=== PATIENT | male | born 1985 | race African-American/Black ===

== ENCOUNTER 2017-08-17 10:22 | Inpatient (IN) | payer OTHER ==
[2017-08-17 12:48] VITALS: BMI 25.8
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
[2017-08-17] MEDS ORDERED: ACETAMINOPHEN 325 MG TABLET (FP) PO PRN (15:23)
[2017-08-17] MEDS ORDERED: METHADONE HCL 10 MG TABLET (FOR DETOX USE ONLY) PO ONE ×2 (15:23→23:00)
[2017-08-17] MEDS ORDERED: hydrOXYzine PAMOATE 50 MG CAPSULE (FP) PO PRN (15:23)
[2017-08-17] MEDS ORDERED: MENTHOL/PHENOL 1 EACH UD MM PRN (15:23)
[2017-08-17] MEDS ORDERED: IBUPROFEN 400 MG TABLET (FP) PO PRN (15:23)
[2017-08-17] MEDS ORDERED: LOPERAMIDE HCL 2 MG CAPSULE PO PRN (15:23)
[2017-08-17] MEDS ORDERED: diphenhydrAMINE HCL 50 MG CAPSULE PO PRN (15:23)
[2017-08-17] MEDS ORDERED: MAGNESIUM CITRATE 300 ML BOTTLE PO PRN (15:23)
[2017-08-17] MEDS ORDERED: diazePAM 5 MG TABLET PO ONE (15:23)
[2017-08-17] MEDS ORDERED: guaiFENesin/D-METHORPHAN HB 10 ML UNIT-DOSE CUPS PO PRN (15:23)
[2017-08-17] MEDS ORDERED: MAG HYDROX/AL HYDROX/SIMETH 30 ML UNIT-DOSE CUP PO PRN (15:23)
[2017-08-17] MEDS ORDERED: MAGNESIUM HYDROX 2400MG/30ML ORAL SUSPENSION 30 ML CUP PO PRN (15:23)
[2017-08-17] MEDS ORDERED: P-EPHED 60MG/TRIPROLIDI 2.5MG TABLET PO PRN (15:23)
[2017-08-17] MEDS ORDERED: METHADONE HCL 10 MG TABLET (FOR DETOX USE ONLY) ONE (17:46)
[2017-08-17] MEDS: NICOTINE 21 MG/24 HOURS TOPICAL PATCH TD SCH (17:58)
[2017-08-17] MEDS: NICOTINE POLACRILEX 2 MG GUM BC PRN (19:20)
[2017-08-17] MEDS: THIAMINE HCL 100 MG TABLET (FP) PO SCH (22:42)
[2017-08-17] MEDS: diazePAM 5 MG TABLET PO SCH (22:42)
[2017-08-17 23:34] LABS: URINE APPEARANCE SLCLOUDY; URINE BILIRUBIN NEGATIVE (NEGATIVE); URINE BLOOD NEGATIVE (NEGATIVE); URINE COLOR AMBER; URINE GLUCOSE (UA) NEGATIVE (NEGATIVE); URINE KETONE NEGATIVE (NEGATIVE); URINE LEUK ESTERASE NEGATIVE (NEGATIVE); URINE NITRITE NEGATIVE (NEGATIVE)
[2017-08-17 23:35] LABS: URINE PROTEIN 1+ (NEGATIVE)
[2017-08-17 23:59] LABS: URINE BACTERIA RARE /hpf (NONE SEEN); URINE MUCUS MANY; URINE RBC 1 /hpf (0-3); URINE WBC 4 /hpf (3-5)
[2017-08-18] MEDS: diazePAM 5 MG TABLET PO SCH ×3 (05:39→22:50)
[2017-08-18] MEDS ORDERED: METHADONE HCL 10 MG TABLET (FOR DETOX USE ONLY) PO SCH (10:00)
[2017-08-18 10:22] LABS: SICKLE CELL SCREEN NEGATIVE (NEGATIVE)
[2017-08-18 10:25] LABS: ALBUMIN 3.3 g/dl (3.4-5.0); ANION GAP 8 (8-16); BILIRUBIN,TOTAL 0.3 mg/dL (0.2-1.0); CALCIUM 8.7 mg/dL (8.5-10.1); CO2 28 mmol/L (21-32); CREATININE 1.1 mg/dL (0.7-1.3); GLUCOSE,RANDOM 101 mg/dL (74-106); SGOT/AST 13 U/L (15-37); SGPT/ALT 16 U/L (12-78); TOT PROT 6.4 g/dl (6.4-8.2)
[2017-08-18 10:26] LABS: ALK PHOS 66 U/L (45-117); MCH 30.2 pg (25.7-33.7); MCHC 33.3 g/dl (32.0-35.9); MEAN CELL VOLUME 90.8 fl (80-96); MEAN PLT VOLUME 7.7 fl (7.5-11.1); PLATELET COUNT 323 K/MM3 (134-434); RDW 13.8 % (11.9-15.9); WHITE BLOOD COUNT 7.7 K/mm3 (4.0-10.0)
[2017-08-18] MEDS: PRENATAL VITAMINS W/ FOLIC ACID TABLET (FP) PO SCH (10:51)
[2017-08-18] MEDS: NICOTINE 21 MG/24 HOURS TOPICAL PATCH TD SCH (10:51)
[2017-08-18] MEDS: diazePAM 5 MG TABLET PO PRN (10:53)
--- NOTE | 2017-08-18 13:07 | EKG ---
Test Reason : Blood Pressure : / mmHG Vent. Rate : 062 BPM Atrial Rate : 062 BPM P-R Int : 176 ms QRS Dur : 098 ms QT Int : 422 ms P-R-T Axes : 042 125 044 degrees QTc Int : 428 ms NORMAL SINUS RHYTHM RIGHT AXIS DEVIATION ABNORMAL ECG NO PREVIOUS ECGS AVAILABLE Confirmed by KRISTIE WYATT MD ([id number]) on 08/18/2017 1:07:09 PM Referred By: Confirmed By:KRISTIE WYATT MD
[2017-08-18] MEDS: NICOTINE POLACRILEX 2 MG GUM BC PRN ×2 (13:28→23:00)
--- NOTE | 2017-08-18 13:39 | PN ---
S CIWA - CIWA Score Nausea/Vomitin Muscle Tremors: 4-Moderate,w/Arms Extend Anxiety: 2 Agitation: 0-Normal Activity Paroxysmal Sweats: No Perspiration Orientation: 0-Oriented Tacttile Disturbances: 2-Mild Itch/Numbness/Burn Auditory Disturbances: 2-Mild Harshness/Frighten Visual Disturbances: 2-Mild Sensitivity Headache: 3-Moderate CIWA-Ar Total Score: 18 BHS COWS - Scale Resting Pulse: 0= [place] 80 or Below Sweatin= Chills/Flushing Restless Observation: 1= Difficult to Sit Still Pupil Size: 0= Normal to Room Light Bone or Joint Aches: 2= Severe Diffuse Aches Runny Nose/ Eye Tearin= None GI Upset > 30mins: 2= Nausea/Diarrhea Tremor Observation of Outstretched Hands: 2= Slight Tremor Visible Yawning Observation: 1= 1-2x During Session Anxiety or Irritability: 2=Irritable/Anxious Goose Flesh Skin: 3=Piloerection COWS Score: 14 BHS Progress Note (SOAP) Subjective: Interrupted Sleep, Nausea, Stomach Cramping, Tremors, H/A, Body Aches. Objective: PT. A & O X 3, OBSERVED AMBULATING ON UNIT. NO ACUTE DISTRESS. 08/18/17 13:41 Vital Signs Temperature 98.2 F 08/18/17 11:18 Pulse Rate 76 08/18/17 11:18 Respiratory Rate 16 08/18/17 11:18 Blood Pressure 118/59 08/18/17 11:18 O2 Sat by Pulse Oximetry (%) Laboratory Tests 08/17/17 08/18/17 08/18/17 23:00 08:00 08:00 WBC 7.7 RBC 4.71 Hgb 14.2 Hct 42.8 MCV 90.8 MCH 30.2 MCHC 33.3 RDW 13.8 Plt Count 323 MPV 7.7 Sickle Cell Screen Negative Sodium 143 Potassium 4.2 Chloride 107 Carbon Dioxide 28 Anion Gap 8 BUN 13 Creatinine 1.1 Creat Clearance w eGFR > 60 Random Glucose 101 Calcium 8.7 Total Bilirubin 0.3 AST 13 L ALT 16 Alkaline Phosphatase 66 Total Protein 6.4 Albumin 3.3 L Urine Color Shantel Urine Appearance Slcloudy Urine pH 5.0 Ur Specific [place] >= 1.030 H Urine Protein 1+ H Urine Glucose (UA) Negative Urine Ketones Negative Urine Blood Negative Urine Nitrite Negative Urine Bilirubin Negative Urine Urobilinogen 2.0 Urine RBC 1 Urine WBC 4 Urine Bacteria Rare Urine Mucus Many RPR Titer 08/18/17 08:00 WBC RBC Hgb Hct MCV MCH MCHC RDW Plt Count MPV Sickle Cell Screen Sodium Potassium Chloride Carbon Dioxide Anion Gap BUN Creatinine Creat Clearance w eGFR Random Glucose Calcium Total Bilirubin AST ALT Alkaline Phosphatase Total Protein Albumin Urine Color Urine Appearance Urine pH Ur Specific [place] Urine Protein Urine Glucose (UA) Urine Ketones Urine Blood Urine Nitrite Urine Bilirubin Urine Urobilinogen Urine RBC Urine WBC Urine Bacteria Urine Mucus RPR Titer Nonreactive LABS NOTED. Assessment: 08/18/17 13:41 WITHDRAWAL SYMPTOMS. Plan: CONTINUE DETOX. INCREASE DAILY PO FLUID INTAKE.
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
[2017-08-18] MEDS: BACITRACIN 0.9 GM PACKET TP SCH ×2 (14:44→21:14)
[2017-08-18] MEDS: ZOLPIDEM TARTRATE 10 MG TABLET (PARK CARE ONLY) PO SCH (22:50)
[2017-08-18] MEDS: THIAMINE HCL 100 MG TABLET (FP) PO SCH (22:50)
[2017-08-19] MEDS: diazePAM 5 MG TABLET PO PRN ×2 (05:45→19:37)
[2017-08-19] MEDS: METHADONE HCL 5 MG TABLET (FOR DETOX USE ONLY) PO SCH (10:41)
[2017-08-19] MEDS: BACITRACIN 0.9 GM PACKET TP SCH ×2 (10:41→22:25)
[2017-08-19] MEDS: NICOTINE 21 MG/24 HOURS TOPICAL PATCH TD SCH (10:41)
[2017-08-19] MEDS: PRENATAL VITAMINS W/ FOLIC ACID TABLET (FP) PO SCH (10:41)
[2017-08-19] MEDS: diazePAM 5 MG TABLET PO SCH ×2 (10:41→22:25)
[2017-08-19] MEDS: NICOTINE POLACRILEX 2 MG GUM BC PRN (10:42)
[2017-08-19] MEDS ORDERED: IBUPROFEN 400 MG TABLET (FP) PO ONE (12:30)
--- NOTE | 2017-08-19 16:50 | PN ---
S CIWA - CIWA Score Nausea/Vomitin Muscle Tremors: 4-Moderate,w/Arms Extend Anxiety: 4-Mod. Anxious/Guarded Agitation: 4-Moderately Restless Paroxysmal Sweats: 3 Orientation: 0-Oriented Tacttile Disturbances: 1-Very Mild Itch/Numbness Auditory Disturbances: 0-None Visual Disturbances: 0-None Headache: 4-Moderately Severe CIWA-Ar Total Score: 23 BHS COWS - Scale Resting Pulse: 0= [place] 80 or Below Sweatin=Flushed/Facial Moisture Restless Observation: 3= Extraneous Movement Pupil Size: 0= Normal to Room Light Bone or Joint Aches: 2= Severe Diffuse Aches Runny Nose/ Eye Tearin= Runny Nose/Eyes GI Upset > 30mins: 2= Nausea/Diarrhea Tremor Observation of Outstretched Hands: 2= Slight Tremor Visible Yawning Observation: 0= None Anxiety or Irritability: 2=Irritable/Anxious Goose Flesh Skin: 0=Smooth Skin COWS Score: 15 [facility] Progress Note (SOAP) Subjective: Sweating, chills, tremor, headache (pain scale 8/10), nausea, anxious Objective: 08/19/17 16:49 Last Vital Signs Temp Pulse Resp BP Pulse Ox 97.7 F 70 20 112/70 08/19/17 15:00 08/19/17 15:00 08/19/17 15:00 08/19/17 15:00 Laboratory Tests 08/17/17 08/18/17 08/18/17 23:00 08:00 08:00 WBC 7.7 RBC 4.71 Hgb 14.2 Hct 42.8 MCV 90.8 MCH 30.2 MCHC 33.3 RDW 13.8 Plt Count 323 MPV 7.7 Sickle Cell Screen Negative Sodium 143 Potassium 4.2 Chloride 107 Carbon Dioxide 28 Anion Gap 8 BUN 13 Creatinine 1.1 Creat Clearance w eGFR > 60 Random Glucose 101 Calcium 8.7 Total Bilirubin 0.3 AST 13 L ALT 16 Alkaline Phosphatase 66 Total Protein 6.4 Albumin 3.3 L Urine Color Shantel Urine Appearance Slcloudy Urine pH 5.0 Ur Specific [place] >= 1.030 H Urine Protein 1+ H Urine Glucose (UA) Negative Urine Ketones Negative Urine Blood Negative Urine Nitrite Negative Urine Bilirubin Negative Urine Urobilinogen 2.0 Urine RBC 1 Urine WBC 4 Urine Bacteria Rare Urine Mucus Many RPR Titer 08/18/17 08:00 WBC RBC Hgb Hct MCV MCH MCHC RDW Plt Count MPV Sickle Cell Screen Sodium Potassium Chloride Carbon Dioxide Anion Gap BUN Creatinine Creat Clearance w eGFR Random Glucose Calcium Total Bilirubin AST ALT Alkaline Phosphatase Total Protein Albumin Urine Color Urine Appearance Urine pH Ur Specific [place] Urine Protein Urine Glucose (UA) Urine Ketones Urine Blood Urine Nitrite Urine Bilirubin Urine Urobilinogen Urine RBC Urine WBC Urine Bacteria Urine Mucus RPR Titer Nonreactive Labs noted: abnormal UA Assessment: 08/19/17 16:49 Withdrawal symptoms Noted with abnormal UA Plan: Continue detox Abnormal UA: encouraged to drink lots of water, repeat UA
[2017-08-19] MEDS: ZOLPIDEM TARTRATE 10 MG TABLET (PARK CARE ONLY) PO SCH (22:25)
[2017-08-19] MEDS: THIAMINE HCL 100 MG TABLET (FP) PO SCH (22:25)
[2017-08-20 09:07] VITALS: BP 111/66; PULSE 82; TEMP 97.2
[2017-08-20] MEDS: BACITRACIN 0.9 GM PACKET TP SCH (10:31)
[2017-08-20] MEDS: PRENATAL VITAMINS W/ FOLIC ACID TABLET (FP) PO SCH (10:32)
[2017-08-20] MEDS: NICOTINE 21 MG/24 HOURS TOPICAL PATCH TD SCH (10:32)
[2017-08-20] MEDS: diazePAM 5 MG TABLET PO SCH (10:32)
[2017-08-20] MEDS: METHADONE HCL 5 MG TABLET (FOR DETOX USE ONLY) PO SCH (10:32)
--- NOTE | 2017-08-20 10:51 | DS ---
[facility] Detox Discharge Summary Admission Date: 08/17/17 Discharge Date: 08/20/17 - History Present History: Cannabis Dependence, Sedative Dependence Pertinent Past History: nicotine dependence, anxiety, depression, insomnia, fatigue - Physical Exam Results Vital Signs: Vital Signs Temperature 97.2 F L 08/20/17 09:07 Pulse Rate 82 08/20/17 09:07 Respiratory Rate 18 08/20/17 09:07 Blood Pressure 111/66 08/20/17 09:07 O2 Sat by Pulse Oximetry (%) Laboratory Tests 08/17/17 08/18/17 08/18/17 23:00 08:00 08:00 WBC 7.7 RBC 4.71 Hgb 14.2 Hct 42.8 MCV 90.8 MCH 30.2 MCHC 33.3 RDW 13.8 Plt Count 323 MPV 7.7 Sickle Cell Screen Negative Sodium 143 Potassium 4.2 Chloride 107 Carbon Dioxide 28 Anion Gap 8 BUN 13 Creatinine 1.1 Creat Clearance w eGFR > 60 Random Glucose 101 Calcium 8.7 Total Bilirubin 0.3 AST 13 L ALT 16 Alkaline Phosphatase 66 Total Protein 6.4 Albumin 3.3 L Urine Color Shantel Urine Appearance Slcloudy Urine pH 5.0 Ur Specific [place] >= 1.030 H Urine Protein 1+ H Urine Glucose (UA) Negative Urine Ketones Negative Urine Blood Negative Urine Nitrite Negative Urine Bilirubin Negative Urine Urobilinogen 2.0 Urine RBC 1 Urine WBC 4 Urine Bacteria Rare Urine Mucus Many RPR Titer 08/18/17 08:00 WBC RBC Hgb Hct MCV MCH MCHC RDW Plt Count MPV Sickle Cell Screen Sodium Potassium Chloride Carbon Dioxide Anion Gap BUN Creatinine Creat Clearance w eGFR Random Glucose Calcium Total Bilirubin AST ALT Alkaline Phosphatase Total Protein Albumin Urine Color Urine Appearance Urine pH Ur Specific [place] Urine Protein Urine Glucose (UA) Urine Ketones Urine Blood Urine Nitrite Urine Bilirubin Urine Urobilinogen Urine RBC Urine WBC Urine Bacteria Urine Mucus RPR Titer Nonreactive Pertinent Admission Physical Exam Findings: withdrawal sx - Treatment Hospital Course: Detox Protocol Followed - Medication Discharge Medications: Ambulatory Orders NK [No Known Home Medication] 08/17/17 - Diagnosis (1) Cannabis dependence Current Visit: Yes Status: Acute (2) Nicotine dependence Current Visit: Yes Status: Acute (3) Opioid dependence with withdrawal Current Visit: Yes Status: Chronic (4) S/P laparoscopic appendectomy Current Visit: Yes Status: Inactive (5) Substance induced mood disorder Current Visit: Yes Status: Acute (6) Uncomplicated sedative, hypnotic, or anxiolytic withdrawal Current Visit: Yes Status: Chronic (7) Low back pain Current Visit: Yes Status: Chronic (8) PTSD (post-traumatic stress disorder) Current Visit: Yes Status: Chronic - AMA Did Patient Leave Against Medical Advice: Yes (refused to complete dtox, risks explained)
[2017-08-21] MEDS ORDERED: METHADONE HCL 10 MG TABLET (FOR DETOX USE ONLY) PO SCH (10:00)
[2017-08-21] MEDS ORDERED: diazePAM 5 MG TABLET PO SCH (10:00)
[2017-08-22] MEDS ORDERED: METHADONE HCL 5 MG TABLET (FOR DETOX USE ONLY) PO SCH (06:00)
== END 2017-08-20 11:01 | disposition left against medical advice (07) | DRG 770 ==
LOC: YASAS 10:22 → Y3N 15:57
PROVIDERS: ADMIT Internal Medicine; ATTEND Internal Medicine
PROC: HZ2ZZZZ Detoxification Services for Substance Abuse Treatment (ICD-10-PCS; principal; 2017-08-17)
DX: F11.23 Opioid dependence with withdrawal (principal); F13.230 Sedative, hypnotic or anxiolytic dependence with withdrawal, uncomplicated; F12.20 Cannabis dependence, uncomplicated; F17.210 Nicotine dependence, cigarettes, uncomplicated; F19.24 Other psychoactive substance dependence with psychoactive substance-induced mood disorder; F43.10 Post-traumatic stress disorder, unspecified; F41.8 Other specified anxiety disorders; R82.90 Unspecified abnormal findings in urine; M54.5 Low back pain; G89.29 Other chronic pain; G47.00 Insomnia, unspecified; Z90.89 Acquired absence of other organs
CPT/HCPCS: 36415; 80053; 81003; 81015; 85027; 85660; 86593; 93005; 93010

== ENCOUNTER 2018-03-19 13:07 | Inpatient (IN) | payer OTHER ==
[2018-03-19 13:28] VITALS: BMI 28.1
--- NOTE | 2018-03-19 18:23 | HP ---
Admission [facility] Chief Complaint: REHAB TX FOR DRUG ADDICTION Allergies/Adverse Reactions: Allergies Allergy/AdvReac Type Severity Reaction Status Date / Time No Known Allergies Allergy Verified 03/19/18 17:10 History of Present Illness: 32 Y/O AA/MALE WITH A HX OF HEROIN AND CRACK DEPENDENCE SEEKING REHAB TREATMENT. PT STATES HE HAS BEEN INCARCERATED AT [facility] FROM 02/20/18 TO 03/19/18. PT STATES WAS REFERRED HERE FROM DRUG COURT. Exam Limitations: No Limitations - Ebola screening Have you traveled outside of the country in the last 21 days: No Have you had contact with anyone from an Ebola affected area: No Have you been sick,other than usual withdrawal symptoms: No Do you have a fever: No - Review of Systems Constitutional: Chills, Night Sweats, Changes in sleep EENT: reports: Tearing, Nose Congestion, Dental Problems (TOOTH EXTRACTION 5 DAYS AGO.) Respiratory: reports: No Symptoms reported Cardiac: reports: No Symptoms Reported GI: reports: Constipated, Diarrhea, Nausea, Vomiting : reports: No Symptoms Reported Musculoskeletal: reports: Back Pain ("I HAVE3 HERNIATED DISCS") Integumentary: reports: No Symptoms Reported Neuro: reports: No Symptoms reported Endocrine: reports: No Symptoms Reported Hematology: reports: Anemia (HX) Psychiatric: reports: Orientated x3, Anxious, Depressed (AND PTSD) Other Systems: Reviewed and Negative Patient History - Patient Medical History Hx Anemia: Yes (WAS ON IRON PILL) Hx Asthma: No Hx Chronic Obstructive Pulmonary Disease (COPD): No Hx Cancer: No Hx Cardiac Disorders: No Hx Congestive Heart Failure: No Hx Hypertension: No Hx Hypercholesterolemia: No Hx Pacemaker: No HX Cerebrovascular Accident: No Hx Seizures: No Hx Dementia: No Hx Diabetes: No Hx Gastrointestinal Disorders: No Hx Liver Disease: No Hx Genitourinary Disorders: No Hx Sexually Transmitted Disorders: No Hx Renal Disease (ESRD): No Hx Thyroid Disease: No Hx Human Immunodeficiency Virus (HIV): No (NEGATIVE HX) Hx Hepatitis C: No Hx Depression: Yes (PTSD) Hx Suicide Attempt: No (DENIES S/I) Hx Bipolar Disorder: No Hx Schizophrenia: No - Patient Surgical History Past Surgical History: Yes Hx Neurologic Surgery: No Hx Cataract Extraction: No Hx Cardiac Surgery: No Hx Lung Surgery: No Hx Breast Surgery: No Hx Breast Biopsy: No Hx Abdominal Surgery: No Hx Appendectomy: Yes (2009) Hx Cholecystectomy: No Hx Genitourinary Surgery: No Hx Orthopedic Surgery: No Anesthesia Reaction: No - PPD History Previous Implant?: Yes Implanted On Prior [facility] Admission?: Yes Date: 08/19/17 Results: 0 mm PPD to be Administered?: No - Reproductive History Patient is a Female of Child Bearing Age (11 -55 yrs old): No (MALE) - Smoking Cessation Smoking history: Current every day smoker Have you smoked in the past 12 months: Yes Aproximately how many cigarettes per day: 20 Cigars Per Day: 0 Hx Chewing Tobacco Use: No Initiated information on smoking cessation: Yes 'Breaking Loose' booklet given: 03/19/18 - Substance & Tx. History Hx Alcohol Use: No (DENIES) Hx Substance Use: Yes (HEROIN) Substance Use Type: Heroin Hx Substance Use Treatment: Yes (LAST TX AT [facility]) - Substances Abused Heroin Route: Inhalation Frequency: Daily Amount used: 1-2 bags Age of first use: 29 Date of Last Use: 12/18/17 Crack Route: Smoking Frequency: 1-2 times per week Amount used: $20 Age of first use: 31 Date of Last Use: 12/18/17 Family Disease History - Family Disease History Family Disease History: Other: Father (living, healthy), Mother (living, healthy ), Brother (one, healthy), Son (age 4 - healthy) Admission Physical Exam BHS - Vital Signs Vital Signs: Vital Signs - 24 hr 03/19/18 13:22 Temperature 97.6 F Pulse Rate 82 Respiratory 18 Rate Blood Pressure 142/94 - Physical General Appearance: Yes: No Apparent Distress, Anxious HEENTM: Yes: EOMI, Normocephalic, THERESE, Pharynx Normal Respiratory: Yes: Chest Non-Tender, Lungs Clear, Normal Breath Sounds, No Respiratory Distress Neck: Yes: Supple, Trachea in good position Breast: Yes: Breast Exam Deferred Cardiology: Yes: Regular Rhythm, Regular Rate, S1, S2 Abdominal: Yes: Normal Bowel Sounds, Non Tender, Flat, Soft Genitourinary: Yes: Other (N/C) Back: Yes: Within Normal Limits Musculoskeletal: Yes: full range of Motion, Gait Steady Extremities: Yes: Normal Range of Motion, Non-Tender 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, 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 Oriented, Alert, Motor Strength 5/5 Integumentary: Yes: Dry, Warm Lymphatic: Yes: Within Normal Limits - Diagnostic (1) Nicotine dependence Current Visit: Yes Status: Acute Qualifiers: Nicotine product type: cigarettes Substance use status: in withdrawal Qualified Code(s): F17.213 - Nicotine dependence, cigarettes, with withdrawal Comment: counseled cessation, not ready (2) Low back pain Current Visit: Yes Status: Chronic (3) Opioid dependence with withdrawal Current Visit: Yes Status: Chronic (4) Cocaine dependence, uncomplicated Current Visit: Yes Status: Chronic (5) PTSD (post-traumatic stress disorder) Current Visit: Yes Status: Chronic Cleared for Admission [facility] - Detox or Rehab Claeared for Rehab Admission: Yes [facility] Breath Alcohol Content Breath Alcohol Content: 0 Urine Drug Screen - Results Drug Screen Negative: Yes Inpatient Rehab Admission - Initial Determination Are CD services needed?: Yes Free of communicable disease: Yes Not in need of hospitalization: Yes - Rehab Admission Criteria Patient is meeting Inpatient Rehab admission criteria:: Yes
[2018-03-19] MEDS ORDERED: MAGNESIUM CITRATE 300 ML BOTTLE PO PRN (18:43)
[2018-03-19] MEDS ORDERED: guaiFENesin/D-METHORPHAN HB 10 ML UNIT-DOSE CUPS PO PRN (18:43)
[2018-03-19] MEDS ORDERED: MAGNESIUM HYDROX 2400MG/30ML ORAL SUSPENSION 30 ML CUP PO PRN (18:43)
[2018-03-19] MEDS ORDERED: P-EPHED 60MG/TRIPROLIDI 2.5MG TABLET PO PRN (18:43)
[2018-03-19] MEDS ORDERED: ACETAMINOPHEN 325 MG TABLET (FP) PO PRN (18:43)
[2018-03-19] MEDS ORDERED: LOPERAMIDE HCL 2 MG CAPSULE PO PRN (18:43)
[2018-03-19] MEDS ORDERED: MENTHOL/PHENOL 1 EACH UD MM PRN (18:43)
[2018-03-19] MEDS ORDERED: NICOTINE POLACRILEX 4 MG GUM BC PRN (18:48)
[2018-03-19] MEDS ORDERED: hydrOXYzine PAMOATE 50 MG CAPSULE (FP) PO PRN (18:48)
--- NOTE | 2018-03-19 21:07 | PN ---
[facility] Progress Note Note: Psychiatry Attending's on-call note : Called to enter order for mirtazapine. Case of a 32 y/o male,court-mandated for rehab treatment. [facility]On [facility] 45 mg/hs.For insomnia. Spoke to patient via telephone.Confirmed dose.Last taken on 03/18/18. Mr Sanchez is made aware of side effects/benefits.Wants to resume the medication. Has been on remeron for past six months.Good tolerability,as per patient. Intervention : Will resume remeron at the dose of 30 mg po hs. Psychiatric evaluation by unit psychiatrist in AM. Titration to follow. Patient agrees with this plan.
[2018-03-19] MEDS: NICOTINE 21 MG/24 HOURS TOPICAL PATCH TD SCH (21:14)
[2018-03-19] MEDS: THIAMINE HCL 100 MG TABLET (FP) PO SCH (21:14)
[2018-03-19] MEDS: MIRTAZAPINE 30 MG TABLET (FP) PO SCH (21:14)
[2018-03-19] MEDS: IBUPROFEN 400 MG TABLET (FP) PO PRN (21:15)
[2018-03-20 08:20] LABS: URINE APPEARANCE TURBID; URINE BILIRUBIN NEGATIVE (<2.0 mg/dL); URINE COLOR YELLOW; URINE GLUCOSE (UA) NEGATIVE (NEGATIVE); URINE KETONE NEGATIVE (NEGATIVE); URINE LEUK ESTERASE NEGATIVE (NEGATIVE); URINE NITRITE NEGATIVE (NEGATIVE); URINE UROBILINOGEN NEGATIVE mg/dL (0.2-1.0)
[2018-03-20 08:23] LABS: URINE PROTEIN 1+ (NEGATIVE)
[2018-03-20 08:30] LABS: URINE BACTERIA RARE /hpf (NONE SEEN); URINE MUCUS RARE; YEAST MANY
[2018-03-20] MEDS: NICOTINE 21 MG/24 HOURS TOPICAL PATCH TD SCH (09:29)
[2018-03-20] MEDS: PRENATAL VITAMINS W/ FOLIC ACID TABLET (FP) PO SCH (09:30)
--- NOTE | 2018-03-20 09:49 | EKG ---
Test Reason : Blood Pressure : / mmHG Vent. Rate : 089 BPM Atrial Rate : 089 BPM P-R Int : 162 ms QRS Dur : 084 ms QT Int : 376 ms P-R-T Axes : 060 119 039 degrees QTc Int : 457 ms NORMAL SINUS RHYTHM RIGHT AXIS DEVIATION ABNORMAL ECG WHEN COMPARED WITH ECG OF 17-AUG-2017 17:59, NO SIGNIFICANT CHANGE WAS FOUND Confirmed by SABINO CORADO MD ([id number]) on 03/20/2018 9:49:22 AM Referred By: Confirmed By:SABINO CORADO MD
[2018-03-20 09:51] LABS: HEMATOCRIT 43.2 % (35.4-49); MCH 30.8 pg (25.7-33.7); MCHC 34.6 g/dl (32.0-35.9); MEAN CELL VOLUME 89.1 fl (80-96); MEAN PLT VOLUME 7.9 fl (7.5-11.1); PLATELET COUNT 384 K/MM3 (134-434); RBC 4.85 M/mm3 (4.00-5.60); RDW 13.9 % (11.9-15.9); WHITE BLOOD COUNT 5.2 K/mm3 (4.0-10.0)
[2018-03-20 10:33] LABS: ALBUMIN 4.4 g/dl (3.4-5.0); ANION GAP 12 (8-16); BLOOD UREA NITROGEN 14 mg/dL (7-18); CALCIUM 9.5 mg/dL (8.5-10.1); CHLORIDE 106 mmol/L (98-107); CO2 25 mmol/L (21-32); CREATININE 1.1 mg/dL (0.7-1.3); GLUCOSE,RANDOM 86 mg/dL (74-106); SGOT/AST 25 U/L (15-37); SGPT/ALT 23 U/L (12-78); SODIUM 143 mmol/L (136-145)
[2018-03-20 10:34] LABS: ALK PHOS 86 U/L (45-117); BILIRUBIN,TOTAL 0.5 mg/dL (0.2-1.0); TOT PROT 8.1 g/dl (6.4-8.2)
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
[2018-03-20] MEDS: THIAMINE HCL 100 MG TABLET (FP) PO SCH (21:19)
[2018-03-20] MEDS: MIRTAZAPINE 30 MG TABLET (FP) PO SCH (21:19)
[2018-03-20] MEDS: IBUPROFEN 400 MG TABLET (FP) PO PRN (21:20)
[2018-03-21] MEDS: NICOTINE 21 MG/24 HOURS TOPICAL PATCH TD SCH ×2 (09:55→10:37)
[2018-03-21] MEDS: PRENATAL VITAMINS W/ FOLIC ACID TABLET (FP) PO SCH ×2 (09:55→10:38)
--- NOTE | 2018-03-21 11:50 | PN ---
S Progress Note Note: patient reports he is anxious at nights, will increase Remeron 45 mg, as per pt' s request.
[2018-03-21] MEDS: THIAMINE HCL 100 MG TABLET (FP) PO SCH (21:31)
[2018-03-21] MEDS: MIRTAZAPINE 15 MG TABLET (FP) PO SCH (21:31)
[2018-03-22] MEDS: PRENATAL VITAMINS W/ FOLIC ACID TABLET (FP) PO SCH (09:44)
[2018-03-22] MEDS: NICOTINE 21 MG/24 HOURS TOPICAL PATCH TD SCH (09:44)
[2018-03-22] MEDS: THIAMINE HCL 100 MG TABLET (FP) PO SCH (21:13)
[2018-03-22] MEDS: MIRTAZAPINE 15 MG TABLET (FP) PO SCH (21:13)
[2018-03-23] MEDS: NICOTINE 21 MG/24 HOURS TOPICAL PATCH TD SCH (10:25)
[2018-03-23] MEDS: PRENATAL VITAMINS W/ FOLIC ACID TABLET (FP) PO SCH (10:25)
[2018-03-23] MEDS: THIAMINE HCL 100 MG TABLET (FP) PO SCH (21:17)
[2018-03-23] MEDS: MIRTAZAPINE 15 MG TABLET (FP) PO SCH (21:17)
[2018-03-23] MEDS: IBUPROFEN 400 MG TABLET (FP) PO PRN (21:18)
[2018-03-24] MEDS: PRENATAL VITAMINS W/ FOLIC ACID TABLET (FP) PO SCH (10:12)
[2018-03-24] MEDS: NICOTINE 21 MG/24 HOURS TOPICAL PATCH TD SCH (10:12)
[2018-03-24] MEDS: THIAMINE HCL 100 MG TABLET (FP) PO SCH (21:18)
[2018-03-24] MEDS: MIRTAZAPINE 15 MG TABLET (FP) PO SCH (21:18)
[2018-03-24] MEDS: IBUPROFEN 400 MG TABLET (FP) PO PRN (21:19)
[2018-03-25] MEDS: NICOTINE 21 MG/24 HOURS TOPICAL PATCH TD SCH (10:41)
[2018-03-25] MEDS: PRENATAL VITAMINS W/ FOLIC ACID TABLET (FP) PO SCH (10:41)
[2018-03-25] MEDS: THIAMINE HCL 100 MG TABLET (FP) PO SCH (21:22)
[2018-03-25] MEDS: MIRTAZAPINE 15 MG TABLET (FP) PO SCH (21:22)
[2018-03-25] MEDS: IBUPROFEN 400 MG TABLET (FP) PO PRN (21:24)
[2018-03-26] MEDS: NICOTINE 21 MG/24 HOURS TOPICAL PATCH TD SCH (10:38)
[2018-03-26] MEDS: PRENATAL VITAMINS W/ FOLIC ACID TABLET (FP) PO SCH (10:38)
[2018-03-26] MEDS: MIRTAZAPINE 15 MG TABLET (FP) PO SCH (21:10)
[2018-03-26] MEDS: THIAMINE HCL 100 MG TABLET (FP) PO SCH (21:10)
[2018-03-27] MEDS: NICOTINE 21 MG/24 HOURS TOPICAL PATCH TD SCH (11:00)
[2018-03-27] MEDS: PRENATAL VITAMINS W/ FOLIC ACID TABLET (FP) PO SCH (11:00)
--- NOTE | 2018-03-27 15:21 | PN ---
[facility] Progress Note Note: Patient was seen regarding request for Suboxone. Was previously treated at [facility] by SOHAM Roe with suboxone. Last dose in January of this year. Pt denies sweating, nausea, diarrhea and body aches. States "I feel fine". Patient informed he is not exhibiting withdrawal symptoms and therefore Suboxone not ordered. Will continue to monitor clinically.
[2018-03-27] MEDS: MIRTAZAPINE 15 MG TABLET (FP) PO SCH (21:14)
[2018-03-27] MEDS: THIAMINE HCL 100 MG TABLET (FP) PO SCH (21:14)
[2018-03-28] MEDS: PRENATAL VITAMINS W/ FOLIC ACID TABLET (FP) PO SCH (10:19)
[2018-03-28] MEDS: NICOTINE 21 MG/24 HOURS TOPICAL PATCH TD SCH (10:21)
[2018-03-28] MEDS: MIRTAZAPINE 15 MG TABLET (FP) PO SCH (21:23)
[2018-03-28] MEDS: THIAMINE HCL 100 MG TABLET (FP) PO SCH (21:24)
[2018-03-29] MEDS: PRENATAL VITAMINS W/ FOLIC ACID TABLET (FP) PO SCH (10:13)
[2018-03-29] MEDS: NICOTINE 21 MG/24 HOURS TOPICAL PATCH TD SCH (10:13)
--- NOTE | 2018-03-29 15:00 | PN ---
[facility] Progress Note Note: Patient requests increase Belsomra dosage to 15 mg po HS and reinstatement of Melatonin 5 mg po HS prn
[2018-03-29] MEDS: THIAMINE HCL 100 MG TABLET (FP) PO SCH (21:20)
[2018-03-29] MEDS: MIRTAZAPINE 15 MG TABLET (FP) PO SCH (21:20)
[2018-03-30] MEDS: NICOTINE 21 MG/24 HOURS TOPICAL PATCH TD SCH (09:51)
[2018-03-30] MEDS: PRENATAL VITAMINS W/ FOLIC ACID TABLET (FP) PO SCH (09:51)
[2018-03-30] MEDS: THIAMINE HCL 100 MG TABLET (FP) PO SCH (21:16)
[2018-03-30] MEDS: MIRTAZAPINE 15 MG TABLET (FP) PO SCH (21:16)
[2018-03-31] MEDS: MAG HYDROX/AL HYDROX/SIMETH 30 ML UNIT-DOSE CUP PO PRN (03:28)
[2018-03-31] MEDS: NICOTINE 21 MG/24 HOURS TOPICAL PATCH TD SCH (09:45)
[2018-03-31] MEDS: PRENATAL VITAMINS W/ FOLIC ACID TABLET (FP) PO SCH (09:45)
[2018-03-31] MEDS: MIRTAZAPINE 15 MG TABLET (FP) PO SCH (21:21)
[2018-03-31] MEDS: THIAMINE HCL 100 MG TABLET (FP) PO SCH (21:21)
[2018-04-01] MEDS: PRENATAL VITAMINS W/ FOLIC ACID TABLET (FP) PO SCH (10:35)
[2018-04-01] MEDS: NICOTINE 21 MG/24 HOURS TOPICAL PATCH TD SCH (10:35)
[2018-04-01] MEDS: MIRTAZAPINE 15 MG TABLET (FP) PO SCH (21:14)
[2018-04-01] MEDS: THIAMINE HCL 100 MG TABLET (FP) PO SCH (21:14)
[2018-04-02] MEDS: NICOTINE 21 MG/24 HOURS TOPICAL PATCH TD SCH (10:20)
[2018-04-02] MEDS: PRENATAL VITAMINS W/ FOLIC ACID TABLET (FP) PO SCH (10:20)
[2018-04-02] MEDS: MAG HYDROX/AL HYDROX/SIMETH 30 ML UNIT-DOSE CUP PO PRN (21:15)
[2018-04-02] MEDS: MIRTAZAPINE 15 MG TABLET (FP) PO SCH (21:15)
[2018-04-02] MEDS: THIAMINE HCL 100 MG TABLET (FP) PO SCH (21:15)
[2018-04-03] MEDS: PRENATAL VITAMINS W/ FOLIC ACID TABLET (FP) PO SCH (09:59)
[2018-04-03] MEDS: NICOTINE 21 MG/24 HOURS TOPICAL PATCH TD SCH (09:59)
[2018-04-03] MEDS: THIAMINE HCL 100 MG TABLET (FP) PO SCH (21:18)
[2018-04-03] MEDS: MIRTAZAPINE 15 MG TABLET (FP) PO SCH (21:18)
[2018-04-04] MEDS: PRENATAL VITAMINS W/ FOLIC ACID TABLET (FP) PO SCH (10:06)
[2018-04-04] MEDS: NICOTINE 21 MG/24 HOURS TOPICAL PATCH TD SCH (10:06)
--- NOTE | 2018-04-04 14:24 | HP ---
Admission [facility] Allergies/Adverse Reactions: Allergies Allergy/AdvReac Type Severity Reaction Status Date / Time No Known Allergies Allergy Verified 03/19/18 17:10 - Ebola screening Have you traveled outside of the country in the last 21 days: No Have you had contact with anyone from an Ebola affected area: No Have you been sick,other than usual withdrawal symptoms: No Do you have a fever: No Patient History - Patient Medical History Hx Anemia: Yes (WAS ON IRON PILL) Hx Asthma: No Hx Chronic Obstructive Pulmonary Disease (COPD): No Hx Cancer: No Hx Cardiac Disorders: No Hx Congestive Heart Failure: No Hx Hypertension: No Hx Hypercholesterolemia: No Hx Pacemaker: No HX Cerebrovascular Accident: No Hx Seizures: No Hx Dementia: No Hx Diabetes: No Hx Gastrointestinal Disorders: No Hx Liver Disease: No Hx Genitourinary Disorders: No Hx Sexually Transmitted Disorders: No Hx Renal Disease (ESRD): No Hx Thyroid Disease: No Hx Human Immunodeficiency Virus (HIV): No (NEGATIVE HX) Hx Hepatitis C: No Hx Depression: Yes (PTSD) Hx Suicide Attempt: No (DENIES S/I) Hx Bipolar Disorder: No Hx Schizophrenia: No - Patient Surgical History Past Surgical History: Yes Hx Neurologic Surgery: No Hx Cataract Extraction: No Hx Cardiac Surgery: No Hx Lung Surgery: No Hx Breast Surgery: No Hx Breast Biopsy: No Hx Abdominal Surgery: No Hx Appendectomy: Yes (2009) Hx Cholecystectomy: No Hx Genitourinary Surgery: No Hx Section: No Hx Orthopedic Surgery: No Anesthesia Reaction: No - PPD History Previous Implant?: Yes Implanted On [facility] Admission?: Yes Date: 08/19/17 Results: 0 mm - Smoking Cessation Smoking history: Current every day smoker Have you smoked in the past 12 months: Yes Aproximately how many cigarettes per day: 20 Cigars Per Day: 0 Hx Chewing Tobacco Use: No Initiated information on smoking cessation: Yes - Substances Abused Heroin Route: Inhalation Frequency: Daily Amount used: 1-2 bags Age of first use: 29 Date of Last Use: 12/18/17 Crack Route: Smoking Frequency: 1-2 times per week Amount used: $20 Age of first use: 31 Date of Last Use: 12/18/17 Family Disease History - Family Disease History Family Disease History: Other: Father (living, healthy), Mother (living, healthy ), Brother (one, healthy), Son (age 4 - healthy) Admission Physical Exam BHS - Vital Signs Vital Signs: Vital Signs - 24 hr 04/04/18 04/04/18 04/04/18 00:30 03:30 06:39 Temperature 97.9 F Pulse Rate 90 Respiratory 18 18 18 Rate Blood Pressure 102/50 BHS Breath Alcohol Content Breath Alcohol Content: 0 Urine Drug Screen - Results Drug Screen Negative: Yes Inpatient Rehab Admission - Initial Determination Are CD services needed?: Yes Free of communicable disease: Yes Not in need of hospitalization: Yes
[2018-04-04] MEDS: MIRTAZAPINE 15 MG TABLET (FP) PO SCH (21:17)
[2018-04-04] MEDS: THIAMINE HCL 100 MG TABLET (FP) PO SCH (21:17)
[2018-04-05] MEDS: NICOTINE 21 MG/24 HOURS TOPICAL PATCH TD SCH (10:25)
[2018-04-05] MEDS: PRENATAL VITAMINS W/ FOLIC ACID TABLET (FP) PO SCH (10:25)
[2018-04-05] MEDS: THIAMINE HCL 100 MG TABLET (FP) PO SCH (21:16)
[2018-04-05] MEDS: MIRTAZAPINE 15 MG TABLET (FP) PO SCH (21:16)
[2018-04-06] MEDS: NICOTINE 21 MG/24 HOURS TOPICAL PATCH TD SCH (09:57)
[2018-04-06] MEDS: PRENATAL VITAMINS W/ FOLIC ACID TABLET (FP) PO SCH (09:57)
[2018-04-06] MEDS: MIRTAZAPINE 15 MG TABLET (FP) PO SCH (21:27)
[2018-04-06] MEDS: THIAMINE HCL 100 MG TABLET (FP) PO SCH (21:28)
[2018-04-07] MEDS: PRENATAL VITAMINS W/ FOLIC ACID TABLET (FP) PO SCH (10:19)
[2018-04-07] MEDS: NICOTINE 21 MG/24 HOURS TOPICAL PATCH TD SCH (10:19)
[2018-04-07] MEDS: MIRTAZAPINE 15 MG TABLET (FP) PO SCH (21:11)
[2018-04-07] MEDS: THIAMINE HCL 100 MG TABLET (FP) PO SCH (21:12)
[2018-04-08] MEDS: PRENATAL VITAMINS W/ FOLIC ACID TABLET (FP) PO SCH (09:56)
[2018-04-08] MEDS: NICOTINE 21 MG/24 HOURS TOPICAL PATCH TD SCH (09:56)
[2018-04-08] MEDS: MELATONIN 5 MG TABLETS PO PRN (21:14)
[2018-04-08] MEDS: THIAMINE HCL 100 MG TABLET (FP) PO SCH (21:14)
[2018-04-08] MEDS: MIRTAZAPINE 15 MG TABLET (FP) PO SCH (21:14)
[2018-04-09] MEDS: NICOTINE 21 MG/24 HOURS TOPICAL PATCH TD SCH (10:10)
[2018-04-09] MEDS: PRENATAL VITAMINS W/ FOLIC ACID TABLET (FP) PO SCH (10:11)
[2018-04-09] MEDS: MELATONIN 5 MG TABLETS PO PRN (21:25)
[2018-04-09] MEDS: THIAMINE HCL 100 MG TABLET (FP) PO SCH (21:25)
[2018-04-09] MEDS: MIRTAZAPINE 15 MG TABLET (FP) PO SCH (21:25)
[2018-04-10] MEDS: PRENATAL VITAMINS W/ FOLIC ACID TABLET (FP) PO SCH (10:05)
[2018-04-10] MEDS: NICOTINE 21 MG/24 HOURS TOPICAL PATCH TD SCH (10:05)
[2018-04-10] MEDS: THIAMINE HCL 100 MG TABLET (FP) PO SCH (21:16)
[2018-04-10] MEDS: MIRTAZAPINE 15 MG TABLET (FP) PO SCH (21:16)
[2018-04-10] MEDS: MELATONIN 5 MG TABLETS PO PRN (21:17)
[2018-04-11 07:10] VITALS: BP 105/68; PULSE 88; TEMP 98
--- NOTE | 2018-04-11 09:40 | PN ---
Psychiatric Progress Note Vital Signs: Vital Signs Period Temp Pulse Resp BP Sys/So Pulse Ox Last 24 Hr 98.0 F 88 16-18 105/68 Date of Session: 04/11/18 Chief Complaint:: discharge visit HPI: Patient has addressed alcohol, cocaine, nicotine, cannabise use comorbid PTSD. ROS: WNL Current Medications: Active Medications Generic Name Dose Route Start Last Admin Trade Name Freq PRN Reason Stop Dose Admin Acetaminophen 650 mg 03/19/18 18:43 Tylenol - PO Q4H PRN FEVER Al Hydroxide/Mg Hydroxide 30 ml 03/19/18 18:43 04/02/18 21:15 Mylanta Oral Suspension - PO 30 ml Q6H PRN Administration DYSPEPSIA Eucalyptus/Menthol/Phenol/Sorbitol 1 each 03/19/18 18:43 Cepastat Lozenge - MM Q4H PRN SORE THROAT Guaifenesin 10 ml 03/19/18 18:43 Robitussin Dm - PO Q6H PRN COUGH Hydroxyzine Pamoate 50 mg 03/19/18 18:48 Vistaril - PO Q4H PRN AGITATION Ibuprofen 400 mg 03/19/18 18:43 03/25/18 21:24 Motrin - PO 400 mg Q6H PRN Administration Pain level 4-6 Loperamide HCl 4 mg 03/19/18 18:43 Imodium - PO Q6H PRN DIARRHEA Magnesium Citrate 300 ml 03/19/18 18:43 Citroma - PO Q48H PRN CONSTIPATION Magnesium Hydroxide 30 ml 03/19/18 18:43 Milk Of Magnesia - PO DAILY PRN CONSTIPATION Melatonin 5 mg 03/19/18 22:00 04/10/18 21:17 Melatonin PO 5 mg HS PRN Administration INSOMNIA Mirtazapine 45 mg 03/21/18 22:00 04/10/18 21:16 Remeron - PO 45 mg HS SABINE Administration Nicotine 21 mg 03/19/18 19:00 04/10/18 10:05 Nicoderm Patch - TD Not Given DAILY SABINE Nicotine Polacrilex 4 mg 03/19/18 18:48 Nicorette Gum - BC Q2H PRN NICOTINE REPLACEMENT RX Multivit/Folic Acid/Iron 1 tab 03/20/18 10:00 04/10/18 10:05 Vitamins (Sjr) - PO Not Given DAILY SABINE Pseudoephedrine/Triprolidine 1 combo 03/19/18 18:43 Actifed - PO TID PRN NASAL CONGESTION Thiamine HCl 100 mg 03/19/18 22:00 04/10/18 21:16 Vitamin B1 - PO 100 mg HS SABINE Administration Current Side Effect: No Lab tests ordered: No Lab tests reviewed: Yes Provider note:: Patient has completed today his treatment and met his goals, will continue to address his issues at [facility] treatment program. Patient gained insights into importance of changing attitudes and utilization of supports available to prevent relapses. Remeron well tolerated. no side-effects reported, scripts for 30 days provided. Patient is stable for discharge today. Total face to face time:: 15 Mental Status Exam - Mental Status Exam Alert and Oriented to: Time, Place, Person Cognitive Function: Good Patient Appearance: Well Groomed Mood: Hopeful Affect: Mood Congruent Patient Behavior: Appropriate, Cooperative Speech Pattern: Clear, Appropriate Voice Loudness: Normal Thought Process: Intact, Goal Oriented Thought Disorder: Not Present Hallucinations: Denies Suicidal Ideation: Denies Homicidal Ideation: Denies Insight/Judgement: Fair Sleep: Fair Appetite: Good Muscle strength/Tone: Normal Gait/Station: Normal Psychiatric Treatment Plan - Problem List (1) Cocaine abuse Current Visit: Yes (2) Nicotine dependence Current Visit: Yes Qualifiers: Nicotine product type: cigarettes Substance use status: in withdrawal Qualified Code(s): F17.213 - Nicotine dependence, cigarettes, with withdrawal Comment: counseled cessation, not ready (3) PTSD (post-traumatic stress disorder) Current Visit: Yes (4) Cannabis dependence Current Visit: No
[2018-04-11] MEDS: NICOTINE 21 MG/24 HOURS TOPICAL PATCH TD SCH (10:10)
[2018-04-11] MEDS: PRENATAL VITAMINS W/ FOLIC ACID TABLET (FP) PO SCH (11:05)
== END 2018-04-11 08:20 | disposition home or self-care (01) | DRG 772 ==
LOC: YASAS 13:07 → Y5N 17:28
PROVIDERS: ADMIT Psychiatry & Neurology Psychiatry; ATTEND Psychiatry & Neurology Psychiatry
PROC: HZ42ZZZ Group Counseling for Substance Abuse Treatment, Cognitive-Behavioral (ICD-10-PCS; principal; 2018-03-19)
DX: F11.20 Opioid dependence, uncomplicated (principal); F14.20 Cocaine dependence, uncomplicated; F12.20 Cannabis dependence, uncomplicated; F17.213 Nicotine dependence, cigarettes, with withdrawal; F43.10 Post-traumatic stress disorder, unspecified; M54.5 Low back pain
CPT/HCPCS: 36415; 80053; 81003; 81015; 85027; 86593; 93005; 93010